=== PATIENT | male | born 1995 | race Caucasian/White ===

== ENCOUNTER → 2017-07-25 | Outpatient (CLI) | payer OTHER ==
[~2017-07-25] MED LIST: NONE PER PT
== END ==
LOC: STAR 08:07
PROVIDERS: ATTEND Surgery
DX: Z02.9 Encounter for administrative examinations, unspecified (principal)

== ENCOUNTER 2017-07-31 10:49 | Day surgery (SDC) | payer OTHER ==
[2017-07-25 08:22] VITALS: BP 125/85
[~2017-07-31] VITALS: Ht 180.3 cm; Wt 93.9 kg
[2017-07-31] MEDS ORDERED: LACTATED RINGERS 1,000 ML IV SCH (11:09)
[2017-07-31 11:10] VITALS: BP 125/85
[2017-07-31] MEDS ORDERED: BUPIVACAINE/PF 0.5% ONE (12:41)
[2017-07-31] MEDS ORDERED: EPINEPHRINE 1 MG/ML, 1ML ONE (12:41)
[2017-07-31] MEDS ORDERED: MIDAZOLAM 1 MG/ML, 2ML ONE (12:42)
[2017-07-31] MEDS ORDERED: FENTANYL PF 250 MCG/5ML ONE ×2 (12:42→13:21)
[2017-07-31] MEDS ORDERED: SUCCINYLCHOLINE 20 MG/ML, 10ML ONE (13:10)
[2017-07-31] MEDS ORDERED: CEFAZOLIN 1,000 MG ONE (13:10)
[2017-07-31] MEDS ORDERED: KETOROLAC 30 MG/1 ML ONE (13:10)
[2017-07-31] MEDS ORDERED: LABETALOL 5MG/ML, 20ML IV PRN (14:00)
[2017-07-31] MEDS ORDERED: ACETAMINOPHEN 325 MG TABLET PO PRN (14:00)
[2017-07-31] MEDS ORDERED: OXYcodone 5 MG/5 ML ORAL.SOL UDC PO PRN (14:00)
[2017-07-31] MEDS ORDERED: PROMETHAZINE 25 MG/ML, 1ML IV PRN (14:00)
[2017-07-31] MEDS ORDERED: ONDANSETRON 2MG/ML, 2ML IVPush PRN (14:00)
[2017-07-31] MEDS ORDERED: MEPERIDINE/PF 25MG/0.5ML IVPush PRN (14:00)
[2017-07-31] MEDS ORDERED: HYDROmorphone 1 MG/ML, 1ML IV PRN (14:00)
[2017-07-31] MEDS ORDERED: MIDAZOLAM 1 MG/ML, 2ML IV PRN (14:00)
[2017-07-31] MEDS ORDERED: FENTANYL PF 100 MCG/2ML IV PRN (14:00)
[2017-07-31] MEDS ORDERED: EPHEDRINE 50 MG/ML, 1ML IVPush PRN (14:00)
[2017-07-31] MEDS ORDERED: LORazepam 2 MG/ML, 1ML IVPush PRN (14:00)
[2017-07-31] MEDS ORDERED: BUPIVACAINE/PF-EPI 0.5% 1:200K INFIL ONE (14:08)
[2017-07-31] MEDS ORDERED: ONDANSETRON 2MG/ML, 2ML ONE ×2 (14:11→14:41)
[2017-07-31] MEDS ORDERED: PROPOFOL 10 MG/ML, 20ML ONE ×2 (14:11)
[2017-07-31] MEDS ORDERED: DEXAMETHASONE 4 MG/ML, 1ML ONE (14:11)
[2017-07-31] MEDS ORDERED: OXYcodone 5 MG/5 ML ORAL.SOL UDC ONE (14:41)
== END 2017-07-31 16:55 | disposition home or self-care (01) ==
LOC: OUT 10:49
PROVIDERS: ATTEND Surgery
DX: M79.89 Other specified soft tissue disorders (principal)
CPT/HCPCS: 21932; 22900; 27327; 88304; J0171; J0330; J0690; J1100; J1885; J2250; J2405; J2704; J3010; J3490; J7120; 88305

== ENCOUNTER 2019-11-09 17:06 | Emergency (ER) | payer MEDICAID, OTHER ==
[~2019-11-09] VITALS: Ht 180.3 cm; Wt 98.9 kg
[2019-11-09 19:00] LABS: BASOPHILS # (AUTO) 0.06 x10^3/uL (0-0.1); BASOPHILS % (AUTO) 1 % (0-1); EOSINOPHILS # (AUTO) 0.49 x10^3/uL (0-0.4); EOSINOPHILS % (AUTO) 7 % (1-7); LYMPHOCYTES # (AUTO) 2.16 x10^3/uL (1-3.4); LYMPHOCYTES % (AUTO) 31 % (22-44); MD NO; MEAN CORPUSCULAR HEMOGLOBIN 31.5 pg (27.5-34.5); MEAN CORPUSCULAR HGB CONC 34.6 g/dL (33.2-36.2); MEAN PLATELET VOLUME 7.8 fL (7.4-10.4); MONOCYTES # (AUTO) 0.46 x10^3/uL (0.2-0.8); MONOCYTES % (AUTO) 7 % (2-9); NEUTROPHILS # (AUTO) 3.91 x10^3/uL (1.8-6.8); NEUTROPHILS % (AUTO) 55 % (42-75); PLATELET COUNT 269 x10^3/uL (130-400); RED BLOOD COUNT 5.26 x10^6/uL (4.38-5.82); RED CELL DISTRIBUTION WIDTH 13.3 % (9.4-14.8)
[2019-11-09 19:09] LABS: ALBUMIN 4.2 g/dL (3.4-5.0); ANION GAP 7 mmol/L (5-15); CALCIUM 9.3 mg/dL (8.5-10.1); CHLORIDE 108 mmol/L (98-107); CREATININE 0.98 mg/dL (0.7-1.3)
[2019-11-09 19:25] VITALS: BP 125/72
== END 2019-11-09 20:00 | disposition home or self-care (01) ==
LOC: ED 17:26
DX: S02.19XS Other fracture of base of skull, sequela (principal); J06.9 Acute upper respiratory infection, unspecified; K92.1 Melena; R60.9 Edema, unspecified; R05 Cough; X58.XXXS Exposure to other specified factors, sequela
CPT/HCPCS: 36415; 71045; 80048; 82040; 85025; 99284